=== PATIENT | male | born 1985 | race Caucasian/White ===

== ENCOUNTER 2020-03-26 18:10 | Observation (INO) ==
[2020-03-26] MEDS ORDERED: NITROGLYCERIN 2% OINTMENT 30GM TUBE EXT STA (18:31)
[2020-03-26] MEDS ORDERED: SODIUM CHLORIDE 0.9% 1000ML 1,000 ML IV ONE (18:39)
--- NOTE | 2020-03-26 18:39 | Emergency Department Note ---
History of Present Illness General Chief complaint: Chest Pain Stated complaint: CHEST PAIN, POSSIBLE UTI Time Seen by Provider: 03/26/20 18:22 Source: patient History of Present Illness Provider complaint: Chest pain Onset (ago): month(s) Location: chest Radiation: neck Severity: moderate Pain Consistency: + constant Maximum Pain Intensity: 6 Quality: + other (Tightness) Relieved By: + none Associated symptoms: + cough, + shortness of breath and + other (Burning on urination for 2 days); no fever/chills and no nausea/vomiting This is a 34-year-old male who presents with chest discomfort for the past month. He states the pain is constant. He describes it as a tightness across his whole chest and in his neck as if he is coming down with a "respiratory illness." He has been coughing throughout this time as well. The cough is nonproductive and not associated with a fever. The tightness is constant and never goes away. He became concerned today because he developed a new type of chest pain 3 days ago. His pain is intermittent. He describes it as a "hard heartbeat and burning" on the left side of his chest without radiation. It is associated with shortness of breath. He denies any diaphoresis. He has had no leg swelling or pain or immobilization. He does go to work putting up [email or web address]. He has had no known contact with COVID-19. He states that he has not lost his sense of taste or smell other than feeling congested in his nose. He has had no vomiting, abdominal pain, diarrhea or myalgias. He does smoke about a pack per day. He denies ever using cocaine. He does state that his grandfather of a heart attack during his old age. His mother has hypertension but no one in the immediate family has coronary artery disease. He also states that he has had some urinary burning for the past 2 days. He denies any rash or testicular pain or swelling. He states that he is monogamous with his of many years and is not concerned about STIs. He does state that he has had a UTI in the past when he became dehydrated. Home Medications Home Medications Medication Instructions Recorded Confirmed Type Medical Marijuana 1 dose INHALATION UD PRN 03/26/20 03/26/20 History Allergies Allergy/AdvReac Type Severity Reaction Status Date / Time No Known Allergies Allergy Mild Unverified 03/26/20 18:47 Past Med/Surg History Medical History Hypertension Family History (Updated 03/26/20 @ 18:37 by Cleveland Reeves MD) Mother Hypertension Social History Smoking Status: Former smoker Tobacco Type: Cigarettes Feels Safe at Home: Yes Review of Systems See HPI for pertinent positives & negatives. and A total of 10 systems reviewed and were otherwise negative Physical Exam Vital Signs Vital Signs - 24 hr 03/26/20 18:15 03/26/20 18:31 03/26/20 18:34 Temperature 37.1 C Temperature Source Oral Pulse Rate 116 H 95 H Respiratory Rate 20 14 Respiratory Effort / Characteristics Non-Labored Respiratory Depth Normal Blood Pressure 175/106 H 173/104 H Blood Pressure Mean 129 113 Pulse Oximetry 100 96 Oxygen Delivery Method Room Air Room Air Sepsis Recent Fever Within 48 Hours No Sepsis New/Unexplained Change in Mental Status N/A Sepsis Action Taken by Nursing No Action Required 03/26/20 18:39 03/26/20 19:00 03/26/20 19:46 Temperature Temperature Source Pulse Rate 100 H 91 H 93 H Respiratory Rate 22 16 13 Respiratory Effort / Characteristics Respiratory Depth Blood Pressure 149/99 H Blood Pressure Mean 112 Pulse Oximetry Oxygen Delivery Method Sepsis Recent Fever Within 48 Hours Sepsis New/Unexplained Change in Mental Status Sepsis Action Taken by Nursing 03/26/20 20:00 03/26/20 20:30 Temperature Temperature Source Pulse Rate 77 79 Respiratory Rate 15 15 Respiratory Effort / Characteristics Respiratory Depth Blood Pressure 146/100 H 145/105 H Blood Pressure Mean 118 121 Pulse Oximetry Oxygen Delivery Method Sepsis Recent Fever Within 48 Hours Sepsis New/Unexplained Change in Mental Status Sepsis Action Taken by Nursing Constitutional: Vital signs reviewed. Eyes: Pupils are equal round reactive to light. Conjunctiva are noninjected. ENT: Pharynx is clear without erythema or exudate. Mucous membranes are dry. Neck supple without meningeal signs. Respiratory: Clear to auscultation bilaterally. Breath sounds are equal bilaterally. Cardiovascular: Tachycardic. Heart rate 111. GI: Soft, nondistended and nontender. Bowel sounds are present. Musculoskeletal: No peripheral edema. No lower extremity tenderness. Integumentary: No cyanosis. or jaundice. Neurological: The patient is awake and alert. No focal deficits. Psychiatric: Normal affect. Not anxious appearing. Course Administered Medications Discontinued Medications Sodium Chloride (Nss 1000ml) 1,000 mls @ 999 mls/hr IV .Q1H1M ONE Stop: 03/26/20 19:39 Last Infusion: 03/26/20 20:08 Dose: 0 mls/hr Documented by: [id number] Admin: 03/26/20 18:54 Dose: 999 mls/hr Documented by: [id number] Ioversol (Optiray 320 125ml) 119 ml IV ONCE ONE Stop: 03/26/20 20:23 Last Admin: 03/26/20 20:22 Dose: 119 ml Documented by: [id number] Nitroglycerin (Nitro-Bid 2%) 0.5 inch EXT NOW STA Stop: 03/26/20 18:32 Last Admin: 03/26/20 18:54 Dose: 0.5 inch Documented by: [id number] Medical Decision Making Differential Diagnosis Pneumonia, bronchitis, pleurisy, GERD, [place], UTI, pulmonary embolism Medical Records Attestation: I reviewed the patient's medical records. I did perform a limited focused review of portions of the patient's old chart on the electronic medical record. The patient has had no recent pertinent visits to this hospital. Home Medications Current Medication List: was personally reviewed by me Laboratory Data Attestation: I reviewed the patient's lab results. Result diagrams: 03/26/20 18:36 03/26/20 18:36 Lab Results 03/26/20 03/26/20 03/26/20 Range/Units 18:36 18:36 18:36 WBC 10.16 (4.8-10.8) K/uL RBC 5.53 (4.7-6.1) M/uL Hgb 17.0 (14.0-18.0) g/dL Hct 48.5 (42-52) % MCV 87.7 (80-100) fL MCH 30.7 (25-34) pg MCHC 35.1 (32-36) g/dL RDW Std Deviation 40.6 (36.4-46.3) fL RDW Coeff of [place]rec[place] 12.7 (11.5-14.5) % Plt Count 283 (130-400) K/uL MPV 9.8 (7.4-10.4) fL Immature Gran % (Auto) 0.3 % Neut % (Auto) 68.3 % Lymph % (Auto) 22.3 % [place] % (Auto) 6.2 % Eos % (Auto) 2.6 % Baso % (Auto) 0.3 % Neut # (Auto) 6.94 H (1.4-6.5) K/uL Lymph # (Auto) 2.27 (1.2-3.4) K/uL [place] # (Auto) 0.63 H (0.11-0.59) K/uL Eos # (Auto) 0.26 (0-0.5) K/uL Baso # (Auto) 0.03 (0-0.2) K/uL Immature Gran # (Auto) 0.03 H (0.00-0.02) K/uL PT 10.3 (9.0-12.0) Seconds INR 1.0 (0.9-1.1) APTT 25.9 (21.0-31.0) Seconds PTT Ratio 0.9 D-Dimer < 190 (0-500) ug/L FEU Sodium 141 (136-145) mmol/L Potassium 3.8 (3.5-5.1) mmol/L Chloride 107 (98-107) mmol/L Carbon Dioxide 28 (21-32) mmol/L Anion Gap 6.0 (3-11) BUN 10 (7-18) mg/dl Creatinine 1.08 (0.6-1.4) mg/dl Est Cr Clr Drug Dosing 112.4 ml/min Est GFR ( Amer) 103.2 Est GFR (Non-Af Amer) 89.1 BUN/Creatinine Ratio 9.7 L (10-20) Glucose 116 H (70-99) mg/dl Calcium 9.1 (8.5-10.1) mg/dl Total Bilirubin 0.4 (0.2-1) mg/dl AST 16 (15-37) U/L ALT 39 (12-78) U/L Alkaline Phosphatase 86 (45-117) U/L Troponin I < 0.015 (0-0.045) ng/ml Total Protein 8.3 H (6.4-8.2) gm/dl Albumin 4.1 (3.4-5.0) gm/dl Globulin 4.2 H (2.5-4.0) gm/dl Albumin/Globulin Ratio 1.0 (0.9-2) Urine Color Urine Appearance (Clear) Urine pH (4.5-7.5) Ur Specific [place] (1.000-1.030) Urine Protein (Negative) Urine Glucose (UA) (Negative) Urine Ketones (Negative) Urine Blood (Negative) Urine Nitrite (Negative) Urine Bilirubin (Negative) Urine Urobilinogen (Negative) Ur Leukocyte Esterase (Negative) 03/26/20 03/26/20 Range/Units 18:36 19:45 WBC (4.8-10.8) K/uL RBC (4.7-6.1) M/uL Hgb (14.0-18.0) g/dL Hct (42-52) % MCV (80-100) fL MCH (25-34) pg MCHC (32-36) g/dL RDW Std Deviation (36.4-46.3) fL RDW Coeff of [place] (11.5-14.5) % Plt Count (130-400) K/uL MPV (7.4-10.4) fL Immature Gran % (Auto) % Neut % (Auto) % Lymph % (Auto) % [place] % (Auto) % Eos % (Auto) % Baso % (Auto) % Neut # (Auto) (1.4-6.5) K/uL Lymph # (Auto) (1.2-3.4) K/uL [place] # (Auto) (0.11-0.59) K/uL Eos # (Auto) (0-0.5) K/uL Baso # (Auto) (0-0.2) K/uL Immature Gran # (Auto) (0.00-0.02) K/uL PT Cancelled (9.0-12.0) Seconds INR Cancelled (0.9-1.1) APTT Cancelled (21.0-31.0) Seconds PTT Ratio Cancelled D-Dimer (0-500) ug/L FEU Sodium (136-145) mmol/L Potassium (3.5-5.1) mmol/L Chloride (98-107) mmol/L Carbon Dioxide (21-32) mmol/L Anion Gap (3-11) BUN (7-18) mg/dl Creatinine (0.6-1.4) mg/dl Est Cr Clr Drug Dosing ml/min Est GFR ( Amer) Est GFR (Non-Af Amer) BUN/Creatinine Ratio (10-20) Glucose (70-99) mg/dl Calcium (8.5-10.1) mg/dl Total Bilirubin (0.2-1) mg/dl AST (15-37) U/L ALT (12-78) U/L Alkaline Phosphatase (45-117) U/L Troponin I (0-0.045) ng/ml Total Protein (6.4-8.2) gm/dl Albumin (3.4-5.0) gm/dl Globulin (2.5-4.0) gm/dl Albumin/Globulin Ratio (0.9-2) Urine Color Yellow Urine Appearance Clear (Clear) Urine pH >= 9.0 H (4.5-7.5) Ur Specific [place] 1.020 (1.000-1.030) Urine Protein Negative (Negative) Urine Glucose (UA) Negative (Negative) Urine Ketones Trace H (Negative) Urine Blood Negative (Negative) Urine Nitrite Negative (Negative) Urine Bilirubin Negative (Negative) Urine Urobilinogen Negative (Negative) Ur Leukocyte Esterase Negative (Negative) Imaging Data Radiologist's Impression: XR chest 1V portable CLINICAL HISTORY: Atypical chest pain COMPARISON STUDY: No previous studies for comparison. FINDINGS: The cardiac and mediastinal contours are normal. There is no evidence of focal pulmonary consolidation. There is no evidence of failure. No pleural effusions are visualized.[There are bilateral nipple piercings. IMPRESSION: No active disease in the chest. ACT 112: Negative or not required by law. Electronically signed by: Jose Mayorga M.D. 03/26/2020 6:51 PM Dictated: 03/26/201849 Transcribed: 03/26/201849 CTA CHEST: No evidence of filling defect to suggest pulmonary embolism Thoracic aorta within limits No pericardial or pleural effusion Central airways are patent without focal consolidation Mild dependent basilar atelectasis Radiologist: Gerard Pinzon M.D. Study ready at 20:28 and initial results transmitted at 21:04 ECG Data Attestation: I personally reviewed and interpreted this ECG as follows: Indication: + chest pain Rate (beats per minute): 111 Rhythm: + sinus tachycardia ECG Intervals/blocks: + Normal QRS ECG [place]: + Normal ECG ST segments: no ST elevation ECG Findings: no PVCs Blood Pressure Blood Pressure Findings: Elevated blood pressure Blood Pressure Disposition: Referred to patients primary care provider [facility] Narrative I did evaluate the patient as noted above. IV access was established. I did place an order for continuous cardiac monitoring. The monitor showed sinus tachycardia with a rate of 111. I did order and personally review the patient's 12-lead EKG as described above. He has sinus tachycardia without acute isc hemic changes. I did order and personally reviewed the images of the patient's chest x-ray as described above. There is no evidence of pneumonia. I did order a urine analysis. He does not have a UTI. I did order and review the patient's blood work as noted in the electronic medical record. CBC is unremarkable without leukocytosis or anemia. Electrolytes are unremarkable and troponin is negative. D-dimer is negative as well. I did treat the patient with normal saline IV. On reassessment he remains tachycardic but his blood pressure did improve to 145/105. He states his chest pain is improved. He states he still feels unwell and that something does not feel right with him. After further discussion it was decided we would get a CT of the chest to rule out pulmonary embolism given his persistent chest pain and shortness of breath. I did order a CT angiogram of the chest. I did review the images myself as well as the radiology report as described above. There is no evidence of pulmonary embolism. No consolidation is noted. I did reassess the patient. His chest pain is now completely resolved. He states he feels better but his blood pressure went up to 182/128. Given he has exertional chest pain relieved with nitroglycerin and severe hypertension I did recommend hospitalization for further care and evaluation as well as blood pressure control. I did discuss the case with Dr. Rios and the case consultant. I did treat the patient with labetalol 10 mg IV. He was also given aspirin p.o. Impression & Plan Chest pain, Severe hypertension, Dysuria Discharge Plan Visit Data Chief Complaint: Chest Pain Stated Complaint: CHEST PAIN, POSSIBLE UTI ED Provider: Cleveland Reeves Discharge Problem: Chest pain, Severe hypertension, Dysuria Forms Stand Alone Forms: My Prescription Eyewear Prescriptions Prescriptions: No Action Medical Marijuana 1 dose inhalation UD PRN (Reason: Pain) RF: 0 Discharge Problem: Chest pain Qualifiers: Chest pain type: unspecified Qualified Code(s): R07.9 - Chest pain, unspecified
[2020-03-26 18:48] LABS: Basophils # (auto) 0.03 K/uL (0-0.2); Basophils % (auto) 0.3 %; Eosinophils # (auto) 0.26 K/uL (0-0.5); Eosinophils % (auto) 2.6 %; Hematocrit (blood only) 48.5 % (42-52); Immature Granulocytes # (auto) 0.03 K/uL (0.00-0.02); Immature Granulocytes % (auto) 0.3 %; Lymphocytes # (auto) 2.27 K/uL (1.2-3.4); Lymphocytes % (auto) 22.3 %; Mean Corpuscular Hemoglobin 30.7 pg (25-34); Mean Corpuscular Hgb Conc 35.1 g/dL (32-36); Mean Corpuscular Volume 87.7 fL (80-100); Mean Platelet Volume 9.8 fL (7.4-10.4); Monocytes # (auto) 0.63 K/uL (0.11-0.59); Monocytes % (auto) 6.2 %; Neutrophils # (auto) 6.94 K/uL (1.4-6.5); Neutrophils % (auto) 68.3 %; Platelet Count 283 K/uL (130-400); RDW Coefficient of Variation 12.7 % (11.5-14.5); RDW Standard Deviation 40.6 fL (36.4-46.3); Red Blood Count 5.53 M/uL (4.7-6.1); White Blood Count 10.16 K/uL (4.8-10.8)
--- NOTE | 2020-03-26 18:52 | XRay Report ---
XR chest 1V portable CLINICAL HISTORY: Atypical chest pain COMPARISON STUDY: No previous studies for comparison. FINDINGS: The cardiac and mediastinal contours are normal. There is no evidence of focal pulmonary co nsolidation. There is no evidence of failure. No pleural effusions are visualized.[There are bilatera l nipple piercings. IMPRESSION: No active disease in the chest. ACT 112: Negative or not required by law. Electronically signed by: Jose Mayorga M.D. 03/26/2020 6:51 PM
[2020-03-26 19:00] LABS: D Dimer < 190 ug/L FEU (0-500); Partial Thromboplastin Ratio 0.9; Partial Thromboplastin Time 25.9 Seconds (21.0-31.0); Prothrombin Time 10.3 Seconds (9.0-12.0)
[2020-03-26 19:07] LABS: Alanine Aminotransferase 39 U/L (12-78); Albumin Level 4.1 gm/dl (3.4-5.0); Aspartate Aminotransferase 16 U/L (15-37); BUN Creatinine Ratio 9.7 (10-20); Blood Urea Nitrogen 10 mg/dl (7-18); Calcium 9.1 mg/dl (8.5-10.1); Carbon Dioxide 28 mmol/L (21-32); Chloride 107 mmol/L (98-107); Creatinine Clr Calc Pharmacy 112.4 ml/min; Est GFR (African American) 103.2; Est GFR (Non-African American) 89.1; Glucose 116 mg/dl (70-99); Potassium 3.8 mmol/L (3.5-5.1); Sodium 141 mmol/L (136-145)
[2020-03-26 19:12] LABS: Alkaline Phosphatase 86 U/L (45-117); Bilirubin,Total 0.4 mg/dl (0.2-1); Globulin 4.2 gm/dl (2.5-4.0); Total Protein 8.3 gm/dl (6.4-8.2); Troponin I < 0.015 ng/ml (0-0.045)
[2020-03-26 20:13] LABS: Appearance Urine Clear (Clear); Bilirubin Urine Negative (Negative); Blood Urine Negative (Negative); Color Urine Yellow; Glucose Urine UA Negative (Negative); Ketones Urine Trace (Negative); Leukocyte Esterase Urine Negative (Negative); Nitrite Urine Negative (Negative); Protein Urine Negative (Negative); Urobilinogen Urine Negative (Negative); pH Urine >= 9.0 (4.5-7.5)
[2020-03-26] MEDS ORDERED: OPTIRAY 320 125ml IV ONE (20:22)
[2020-03-26] MEDS ORDERED: LABETALOL HCL IV 5 MG/ML 20ML IV STA (21:14)
[2020-03-26] MEDS ORDERED: ASPIRIN CHEW 324 MG PO STA (21:15)
--- NOTE | 2020-03-26 22:34 | History & Physical Report ---
Date of Service March 26, 2020 Assessment & Plan (1) Chest pain: 34-year-old male with past medical history hypertension, tobacco abuse presents with concerns of exertional chest pain admitted for chest pain rule out/work-up. Exertional Chest pain Admit to med telemetry EKG on arrival shows sinus tachycardia without ST elevations or any acute ischemic changes Troponin on admission negative, will repeat every 6 hours x2 Morphine and nitroglycerin ordered PRN for chest pain We will order stress testing A1c/lipid panel in a.m. Patient aspirin initiated. Continue ASA 81 mg daily. Can calculate ASCVD in a.m. and determine need for statin Defer any cardiology consult at present Heart score3 pointsconsidered low score. Risk of MACE 0.91.7% Hypertension Patient notes that he only takes HCTZ 25 mg daily; however, ran out 1 month ago and has been unable to [facility]. Will restart here, titrate as necessary Patient with systolic in the 180s and diastolic in the 130s on admission IV hydralazine as needed for systolic greater than 180 or diastolic greater than 120 FEN/GI: Heart healthy diet DVT prophylaxis: Lovenox SQ Full code Dispo: Med telemetry. History of Present Illness Chief Complaint: Chest pain Primary Care Provider: NO PCP 34-year-old male with past medical history hypertension, tobacco abuse presents with concerns of chest pain. Patient notes that for about the past month he has had "chest discomfort," which he believes related to a URI. However over the past 3 days a new sensation of chest tightness presented. Described as "hard palpitations with burning sensation". Intermittent, nonradiating. Usually resolves within 15 to 30 seconds, however occurs all day. Exacerbated by exertion. 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 Alleviated by rest. No previous such occurrence like this ever before. Associated shortness of breath, cough, and dysuria (for 2 days) complaints. Patient otherwise denies any fevers, nausea, vomiting, diarrhea, chills, diaphoresis, syncope or near syncope, edema, abdominal pain, other urinary symptoms, known sick contacts or recent travel anywhere. No concern for STIs as patient is monogamous with his . Patient with no other acute concerns or complaints. Of note patient states that he normally takes HCTZ 25 mg daily, however he ran out 1 month ago and has been unable to [facility]. Pertinent labs: Glucose 116. Initial Trop negative, d-dimer WNL. Otherwise largely unremarkable EKG: Sinus tachycardia. No acute ischemic changes noted. UA: Negative Chest x-ray: No active disease in the chest Chest CTA: No evidence of filling defect to suggest pulmonary embolism ER course: P.o. aspirin 324 mg, IV labetalol 10 mg, nitroglycerin, NSS 1 L Family history: Mother with hypertension, grandfather from [place]. No other significant cardiac history Social history: Patient is 1 pack/day tobacco user. Social alcohol use. Denies any other illicit drug use including cocaine Allergies Allergy/AdvReac Type Severity Reaction Status Date / Time No Known Allergies Allergy Mild Unverified 03/26/20 18:47 Home Medications Home Medications Medication Instructions Recorded Confirmed Type Medical Marijuana 1 dose INHALATION UD PRN 03/26/20 03/26/20 History Past Med/Surg History Medical History Hypertension Family History (Updated 03/26/20 @ 18:37 by Cleveland Reeves MD) Mother Hypertension Social History Smoking Status: Current every day smoker Tobacco Type: Cigarettes Do You Dip or Chew Tobacco: No; Hx Alcohol Use: Yes Alcohol type: hard liquor Hx Substance Use: No Preferred Language: Turkish Beliefs That Will Affect Care: None Current Living Situation: Spouse and Family Other Information That Helps Us Care for You: No Feels Safe at Home: Yes Safety Concerns: Feels Safe At This Time Review of Systems Review of Systems: All systems reviewed & are unremarkable except as noted in HPI & below Physical Exam Constitutional: WD/WN, vitals as above Eyes: PERRL, conjunctivae normal, anicteric sclerae ENMT: external ear and nose normal, oropharynx normal Respiratory: normal respiratory effort, lungs clear to auscultation Cardiovascular: RRR, no murmur, no edema Gastrointestinal (Abdomen): normal bowel sounds, soft, nontender, no hepatosplenomegaly Skin: no rashes, warm and dry Psychiatric: Orientation: alert and oriented x 3 Affect: + anxious affect Lymphatic: no lymphedema Results & Data Results & Data ([facility]) Vital Signs (Past 12 Hours) Vital Signs Temp Pulse Resp BP Pulse Ox 03/26/20 22:02 80 20 03/26/20 22:00 77 21 180/131 H 03/26/20 21:59 79 20 187/127 H 03/26/20 21:30 82 15 188/111 H 03/26/20 21:12 85 23 182/128 H 03/26/20 21:00 82 14 168/117 H 03/26/20 20:30 79 15 145/105 H 03/26/20 20:00 77 15 146/100 H 03/26/20 19:46 93 H 13 149/99 H 03/26/20 19:00 91 H 16 03/26/20 18:39 100 H 22 03/26/20 18:34 95 H 14 173/104 H 03/26/20 18:31 96 03/26/20 18:15 37.1 C 116 H 20 175/106 H 100 Laboratory Results Laboratory Results - last 24 hr 03/26/20 03/26/20 03/26/20 18:36 18:36 18:36 WBC 10.16 RBC 5.53 Hgb 17.0 Hct 48.5 MCV 87.7 MCH 30.7 MCHC 35.1 RDW Std Deviation 40.6 RDW Coeff of Grecia 12.7 Plt Count 283 MPV 9.8 Immature Gran % (Auto) 0.3 Neut % (Auto) 68.3 Lymph % (Auto) 22.3 [place] % (Auto) 6.2 Eos % (Auto) 2.6 Baso % (Auto) 0.3 Neut # (Auto) 6.94 H Lymph # (Auto) 2.27 [place] # (Auto) 0.63 H Eos # (Auto) 0.26 Baso # (Auto) 0.03 Immature Gran # (Auto) 0.03 H PT 10.3 INR 1.0 APTT 25.9 PTT Ratio 0.9 D-Dimer < 190 Sodium 141 Potassium 3.8 Chloride 107 Carbon Dioxide 28 Anion Gap 6.0 BUN 10 Creatinine 1.08 Est Cr Clr Drug Dosing 112.4 Est GFR ( Amer) 103.2 Est GFR (Non-Af Amer) 89.1 BUN/Creatinine Ratio 9.7 L Glucose 116 H Calcium 9.1 Total Bilirubin 0.4 AST 16 ALT 39 Alkaline Phosphatase 86 Troponin I < 0.015 Total Protein 8.3 H Albumin 4.1 Globulin 4.2 H Albumin/Globulin Ratio 1.0 Urine Color Urine Appearance Urine pH Ur Specific [place] Urine Protein Urine Glucose (UA) Urine Ketones Urine Blood Urine Nitrite Urine Bilirubin Urine Urobilinogen Ur Leukocyte Esterase 03/26/20 03/26/20 18:36 19:45 WBC RBC Hgb Hct MCV MCH MCHC RDW Std Deviation RDW Coeff of Grecia Plt Count MPV Immature Gran % (Auto) Neut % (Auto) Lymph % (Auto) [place] % (Auto) Eos % (Auto) Baso % (Auto) Neut # (Auto) Lymph # (Auto) [place] # (Auto) Eos # (Auto) Baso # (Auto) Immature Gran # (Auto) PT Cancelled INR Cancelled APTT Cancelled PTT Ratio Cancelled D-Dimer Sodium Potassium Chloride Carbon Dioxide Anion Gap BUN Creatinine Est Cr Clr Drug Dosing Est GFR ( Amer) Est GFR (Non-Af Amer) BUN/Creatinine Ratio Glucose Calcium Total Bilirubin AST ALT Alkaline Phosphatase Troponin I Total Protein Albumin Globulin Albumin/Globulin Ratio Urine Color Yellow Urine Appearance Clear Urine pH >= 9.0 H Ur Specific [place] 1.020 Urine Protein Negative Urine Glucose (UA) Negative Urine Ketones Trace H Urine Blood Negative Urine Nitrite Negative Urine Bilirubin Negative Urine Urobilinogen Negative Ur Leukocyte Esterase Negative Code Status & VTE Plan Code Status Full Supervising Physician Co-Signing Physician Notes Patient seen and examined, chart reviewed, case discussed with Dr. Schaeffer and I agree with his assessment and plan as documented above. Briefly, patient is a 34yo C male with history of poorly controlled HTN presenting with CP, SOB/HARDEN and palpitations. 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 He reports he was first diagnosed with HTN appx 12 years ago after getting out of the [employer]. He is currently on HCTZ but ran out of medications appx 1 month ago and has been having some difficulty refilling his prescription. He says that even while taking the HCTZ his blood pressure was not well controlled. 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 States that he always wears a mask with sanding, however, with COVID-19 it has been difficult to find masks so he has not been wearing one. On exam he is afebrile, hypertensive on arrival to 188/111. NO respiratory distress. Nitro paste placed with improvement in CP Skin - sunburn on face, shoulders HEENT - NC/AT, PERRL, EOMI, Neck supple, moist mucus membranes Heart - +S1/S2, regular, no m/r/g Lungs - CTA Abd - +BS, soft, NT/ND Ext - No edema Labs and images reviewed Assessment/Plan - -Observation to medical with telemetry -Trend troponin -Stress echocardiogram in AM -Intensify BP control -Patient interested in establishing care with a local PCP - he thinks [facility] will cover this? -Remainder of plan as above Resident Activity Tracking Resident Involvement: Resident Care Provided Care Provided: Adult Hospital Medicine (1) Chest pain Chest pain type: unspecified Qualified Code(s): R07.9 - Chest pain, unspecified
[2020-03-27] MEDS ORDERED: HydrALAZINE HCL 20 MG/ML VIAL IV PRN (00:22)
[2020-03-27] MEDS ORDERED: ACETAMINOPHEN 325 MG TAB PO PRN (00:22)
[2020-03-27] MEDS ORDERED: ALUMINUM/MAGNESIUM SUSP 30 ML UDC PO PRN (00:22)
[2020-03-27] MEDS ORDERED: NITROGLYCERIN SL 0.4 MG/TAB TAB SL PRN (00:22)
[2020-03-27] MEDS ORDERED: ONDANSETRON INJ 2 MG/ML 2 ML VIAL IV PRN (00:22)
[2020-03-27] MEDS ORDERED: MoRPHine SULFATE 2 MG/ML CARP IV PRN (00:22)
--- NOTE | 2020-03-27 00:49 | Billing Data ---
Date of Service March 26, 2020 Coding Level of Care Code 36855 OBS Care - Level 2
[2020-03-27 07:18] LABS: Basophils # (auto) 0.02 K/uL (0-0.2); Basophils % (auto) 0.2 %; Eosinophils # (auto) 0.25 K/uL (0-0.5); Eosinophils % (auto) 1.9 %; Hematocrit (blood only) 46.9 % (42-52); Hemoglobin 15.9 g/dL (14.0-18.0); Immature Granulocytes # (auto) 0.03 K/uL (0.00-0.02); Immature Granulocytes % (auto) 0.2 %; Lymphocytes # (auto) 1.85 K/uL (1.2-3.4); Lymphocytes % (auto) 14.1 %; Mean Corpuscular Hemoglobin 30.8 pg (25-34); Mean Corpuscular Hgb Conc 33.9 g/dL (32-36); Mean Corpuscular Volume 90.7 fL (80-100); Mean Platelet Volume 9.8 fL (7.4-10.4); Monocytes # (auto) 0.81 K/uL (0.11-0.59); Monocytes % (auto) 6.2 %; Neutrophils # (auto) 10.19 K/uL (1.4-6.5); Neutrophils % (auto) 77.4 %; Platelet Count 235 K/uL (130-400); RDW Coefficient of Variation 13.1 % (11.5-14.5); RDW Standard Deviation 43.1 fL (36.4-46.3); Red Blood Count 5.17 M/uL (4.7-6.1); White Blood Count 13.15 K/uL (4.8-10.8)
--- NOTE | 2020-03-27 07:33 | CT Scan Report ---
CT ANGIOGRAM OF THE CHEST CLINICAL HISTORY: Atypical chest pain. Tachycardia. COMPARISON STUDY: Chest x-ray dated 03/26/2020. TECHNIQUE: Following the IV administration of 119 cc of Optiray 320, CT angiogram of the chest was pe rformed from the upper abdomen to the thoracic inlet utilizing the pulmonary embolus protocol. Images are reviewed in the axial, sagittal, and coronal planes. 3-D MIPS images are created and assessed. I V contrast was administered without complication. A dose lowering technique was utilized adhering to the principles of ALARA. CT DOSE: 693.41 mGy.cm FINDINGS: Thyroid: Imaged portions of the thyroid gland are normal in size and attenuation. Thoracic aorta: The thoracic aorta is normal in caliber and demonstrates standard 3-vessel arch anato my. No dissection is seen. Pulmonary vasculature: The pulmonary trunk is normal in caliber. There are no filling defects identif ied in main, lobar, or segmental pulmonary branches to suggest pulmonary embolus. Heart: The heart is normal in size and without pericardial effusion. Lungs and pleural spaces: The lungs and pleural spaces are clear noting dependent atelectasis. The tr achea and central airways are patent. Mild diffuse peribronchial thickening is noted. A 2 mm groundgl ass focus in the right upper lobe on image #223 is of doubtful Significance in this age group and lik luis on an inflammatory basis. Mediastinum: There is no mediastinal lymphadenopathy. Skye: Clear. Axillae: There is no axillary lymphadenopathy. Upper abdomen: There is a small hiatal hernia. Partially visualized upper abdominal viscera is otherw ise within normal limits. Bilateral nipple piercings are incidentally noted. Skeletal structures: No lytic or blastic bony lesions are seen. IMPRESSION: 1. There is no evidence of pulmonary embolus in the main, lobar, or segmental pulmonary arteries. 2. There is no airspace consolidation or pleural effusion. 3. Mild diffuse peribronchial thickening suggests bronchitis/reactive airway disease. Clinical correl ation will be required. ACT 112: Negative or not required by law. Electronically signed by: Brian Franco M.D. 03/27/2020 7:31 AM
[2020-03-27 07:55] LABS: BUN Creatinine Ratio 10.2 (10-20); Calcium 9.1 mg/dl (8.5-10.1); Creatinine Clr Calc Pharmacy 140.9 ml/min; Est GFR (African American) 131.1; Est GFR (Non-African American) 113.1; Potassium 4.6 mmol/L (3.5-5.1)
[2020-03-27 08:38] LABS: Estimated Average Glucose 105 mg/dl; Hemoglobin A1C 5.3 % (4.5-5.6)
[2020-03-27] MEDS ORDERED: hydroCHLOROthiazide 25 MG TAB PO SCH (09:00)
[2020-03-27] MEDS ORDERED: ASPIRIN 81 MG ECTAB PO SCH (09:00)
[2020-03-27] MEDS ORDERED: ENOXAPARIN INJ 40 MG/0.4 ML SYR SQ SCH (09:00)
--- NOTE | 2020-03-27 13:02 | XCELERA ---
[id number]
--- NOTE | 2020-03-27 13:22 | Discharge Summary ---
Date of Service March 27, 2020 Admission HPI Per Admitting Provider 34-year-old male with past medical history hypertension, tobacco abuse presents with concerns of chest pain. Patient notes that for about the past month he has had "chest discomfort," which he believes related to a URI. However over the past 3 days a new sensation of chest tightness presented. Described as "hard palpitations with burning sensation". Intermittent, nonradiating. Usually resolves within 15 to 30 seconds, however occurs all day. Exacerbated by exertion. 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 Alleviated by rest. No previous such occurrence like this ever before. Associated shortness of breath, cough, and dysuria (for 2 days) complaints. Patient otherwise denies any fevers, nausea, vomiting, diarrhea, chills, diaphoresis, syncope or near syncope, edema, abdominal pain, other urinary symptoms, known sick contacts or recent travel anywhere. No concern for STIs as patient is monogamous with his . Patient with no other acute concerns or complaints. Of note patient states that he normally takes HCTZ 25 mg daily, however he ran out 1 month ago and [facility] Pertinent labs: Glucose 116. Initial Trop negative, d-dimer WNL. Otherwise largely unremarkable EKG: Sinus tachycardia. No acute ischemic changes noted. UA: Negative Chest x-ray: No active disease in the chest Chest CTA: No evidence of filling defect to suggest pulmonary embolism ER course: P.o. aspirin 324 mg, IV labetalol 10 mg, nitroglycerin, NSS 1 L Family history: Mother with hypertension, grandfather from [place]. No other significant cardiac history Social history: Patient is 1 pack/day tobacco user. Social alcohol use. Denies any other illicit drug use including cocaine Admission Exam Per Admitting Provider Constitutional: WD/WN, vitals as above Eyes: PERRL, conjunctivae normal, anicteric sclerae ENMT: external ear and nose normal, oropharynx normal Respiratory: normal respiratory effort, lungs clear to auscultation Cardiovascular: RRR, no murmur, no edema Gastrointestinal (Abdomen): normal bowel sounds, soft, nontender, no hepatosplenomegaly Skin: no rashes, warm and dry Psychiatric: Orientation: alert and oriented x 3 Affect: + anxious affect Lymphatic: no lymphedema Principal Diagnosis chest pain - likely both muscular (rib/pec minor) and bronchitis (noted on CT - likely environmental) Discharge Exam General: A&Ox3. NAD. Cooperative. HEENT: Atraumatic, normocephalic. Pulm: CTAB A&P. -wheezes, -rales, -rhonchi. Unlabored. No use of accessory muscles. Good effort. Cardiac: RRR, -mrg. Radial pulses intact and symmetrical. Abdominal: Nontender, nondistended, soft. BS present. Skin: No rashes. No pallor. No icterus. Neuro: No focal deficits. Mental: Good recent and remote recall. Psych: Normal mood and affect. Good judgement and insight. Discharge Data Allergies Allergy/AdvReac Type Severity Reaction Status Date / Time No Known Allergies Allergy Mild Unverified 03/26/20 18:47 Consultations 03/26/20 21:14 ED Decision to Admit Stat Ordered Studies 03/26/20 19:21 CT angio chest PE protocol Stat Hospital Course (1) Chest pain: 34-year-old male with past medical history hypertension, tobacco abuse presents with concerns of exertional chest pain admitted for chest pain rule out/work-up. To Do After Discharge -f/u BMP and BP home log in 1 wk, trial of lisinopril 10 Exertional Chest pain Mr. Johnston presents w/ 3 days of chest tightness, initial episode was exertional. DE ruled out by nonacute EKG, negative troponins x3. D-dimer neg. Unstable angina highly unlikely given fairly atypical symptoms and negative stress echo (no ischemic findings at 87% MPHR). PE ruled out by CT angio. The symptoms most likely a combination of musculoskeletal - physical portions of his job he noted a sharp pain in the region of pec minor; as well as an environmental bronchitis picture (cough and some exertional dyspnea - smokes and works w drywall, due to supply/demand, during some of covid pandemic he's had to work without a mask and therefore likely inhaling more dust). Safe/stable for home, outpt f/u. 1 PPD smoker, counseled on cessation. bronchitis -as above noted - likely environmental from dust and cigarettes. no concerning s/s for infectious etiology -albuterol prn -smoke cessation -mask at work when/if possible Hypertension -does not tolerate HCTZ due to excessive urination -has not taken HCTZ for a few months -BP running fairly high here (150s systolic over 100s-120s diastolic w/ spikes to 180s systolic) --> transition to lisinopril 10mg, f/u BMP 1wk, f/u in office 1wk -labetalol 10mg IV x1 administered -daily to TID BP readings at home - at random - and bring readings to office for f/u FEN/GI: Heart healthy diet DVT prophylaxis: Lovenox SQ Full code Dispo: Med telemetry Stable for home Total Time Total Time Spent Total Time Spent (In Minutes): >30 Discharge Plan Discharge Items Patient Disposition: Home - Self-Care Reason For Visit: CHEST PAIN Discharge Diagnosis: musculoskeletal chest pain Activity: Resume your previous activity Non-emergency contact: Primary Care Provider Call non-emergency contact if: you have any medication questions and your symptoms worsen Follow-up/Referrals: PCP,NO [Primary Care Provider] - (PLEASE CONTACT [facility] TOMORROW TO SCHEDULE A POST DISCHAGE FOLLOW-UP APPOINTMENT [phone]) Diet: Regular Addtl Attending Provider Instructions: Chest Pain You were admitted to the hospital for chest pain that started 2 days ago while you were working in construction. In the hospital, we gave you the standard treatment for chest pain, including nitroglycerin and aspirin. We also gave you some blood pressure medications to lower your pressures. We checked your labwork for troponins, a enzyme released by the heart when it is damaged, and they were normal. The EKG did not suggest your damage to your heart. We also performed a stress test ekg and that was normal. It is very important to quit smoking. It can worsen your blood pressures and very importantly increases your risk for heart disease. Please check your pressure 2-3 times/day at random and keep a log. We prescribed lisinopril 10 mg daily as a trial. We will evaluate your blood pressures at the next. Please call the [facility] family medicine clinic to set up an appointment with me or any other primary care provider for a visit sometime next week. We prescribed an Albuterol rescue inhaler for your breathing symptoms. Return precautions: If you develop any new or worsening symptoms including fever, chills, sweats, chest pain, chest pressure, difficulty breathing, uncontrolled nausea/vomiting, wheezing, passing out or nearly passing out, bleeding, or other new or concerning symptoms please call your primary care physician, or call 911 for re- evaluation in the emergency department if you are very concerned. Pending Studies at Discharge: No Stand-Alone Forms: My [facility], Smoking Cessation Medications and DC Order Prescriptions: New albuterol sulfate 90 mcg/actuation HFA aerosol inhaler 1 puffs INH Q6H PRN (Reason: shortness of breath or wheezing) Qty: 6.7 RF: 0 lisinopril 10 mg tablet 10 mg PO DAILY Qty: 14 RF: 0 Continued Medical Marijuana 1 dose inhalation UD PRN (Reason: Pain) RF: 0 Discharge Orders: Discharge Order (Routine); Ordered 03/27/20 Ordered By: Mendel Arceo/Other Patient Handouts: Blood Pressure Check Steps Admission Data Admit Date/Time: 03/26/20 22:49 Attending Provider: Alpesh Raygoza Admit Provider: Romero Schaeffer Primary Care Provider: PCP,NO Other Providers: Jasmin Rios Other Interventions: Discharge Summary Assessment (RN) Last Done: 03/27/20 12:32 DC Date/Time DO NOT enter until pt leaves facility: 03/27/20 14:27 Resident Activity Tracking Resident Involvement: Resident Care Provided Care Provided: Adult Hospital Medicine
--- NOTE | 2020-03-27 17:46 | Electrocardiogram Report ---
Test Reason : Blood Pressure : / mmHG Vent. Rate : 111 BPM Atrial Rate : 111 BPM P-R Int : 132 ms QRS Dur : 100 ms QT Int : 334 ms P-R-T Axes : 020 091 041 degrees QTc Int : 454 ms Sinus tachycardia Rightward axis Borderline ECG No previous ECGs available Confirmed by Layton Ashby ([id number]) on 03/27/2020 5:46:21 PM Referred By: REFERRED SELF Confirmed By:Clinton Ashby
--- NOTE | 2020-03-27 17:50 | Electrocardiogram Report ---
Test Reason : Blood Pressure : / mmHG Vent. Rate : 059 BPM Atrial Rate : 059 BPM P-R Int : 162 ms QRS Dur : 098 ms QT Int : 394 ms P-R-T Axes : 004 088 068 degrees QTc Int : 390 ms Sinus bradycardia with sinus arrhythmia Otherwise normal ECG When compared with ECG of 26-MAR-2020 18:24, (unconfirmed) Vent. rate has decreased BY 52 BPM Confirmed by Layton Ashby ([id number]) on 03/27/2020 5:50:05 PM Referred By: REFERRED SELF Confirmed By:Clinton Ashby
--- NOTE | 2020-03-27 18:38 | Billing Data ---
Date of Service March 27, 2020 Coding Level of Care Code D/C Day Management >30 mins
== END 2020-03-27 14:27 | disposition home or self-care (01) ==
LOC: ED 18:10 → 2W 18:10 → SUATTDRO 22:49 → 2W 23:32